=== PATIENT | male | born 1965 | race Caucasian/White ===

== ENCOUNTER → 2020-03-07 | Outpatient (CLI) | payer OTHER ==
--- NOTE | 2020-03-09 22:45 | ECGEPIP ---
[facility] Test Date: 2020-03-07 Pat Name: SONIA CORADO Department: Room: - Gender: Male [employer] Teacher: CRISPIN : 1965 Requested By: NORBERTO Yanez Order Number: [id number] Reading MD: Bairon Saxena Measurements Intervals [place] Rate: 68 P: -1 DE: 182 QRS: -5 QRSD: 111 T: 21 QT: 393 QTc: 420 Interpretive Statements SINUS RHYTHM WITH VENTRICULAR PREMATURE COMPLEX 1 MODERATE INTRAVENTRICULAR CONDUCTION DELAY Poor R-wave progression Leftward axis No prior ECG available for comparison at the time of interpretation. Electronically Signed on 03-09-2020 22:45:06 EDT by Bairon Saxena
== END ==
LOC: M EKG 09:25
PROVIDERS: ATTEND Orthopaedic Surgery
DX: Z01.810 Encounter for preprocedural cardiovascular examination (principal)

== ENCOUNTER → 2020-03-16 | Outpatient (CLI) | payer OTHER | LOC: M LABSMTC 09:10 | PROVIDERS: ATTEND Orthopaedic Surgery | DX: Z01.812 Encounter for preprocedural laboratory examination (principal); Z20.828 Contact with and (suspected) exposure to other viral communicable diseases ==

== ENCOUNTER → 2020-04-15 | Outpatient (CLI) | payer OTHER ==
[~2020-04-15] MED LIST: HYDR12.55 PO; LISI-538 PO
== END ==
LOC: M LABSMTC 11:17
PROVIDERS: ATTEND Anesthesiology
DX: Z01.812 Encounter for preprocedural laboratory examination (principal); Z20.828 Contact with and (suspected) exposure to other viral communicable diseases

== ENCOUNTER 2020-04-20 08:04 | Day surgery (SDC) | payer OTHER ==
[~2020-04-20] VITALS: Ht 177.8 cm; Wt 127.9 kg
[~2020-04-20 08:04] MED LIST changes: +MIDAZOLAM INJ 2MG/2ML VIAL (J2250 PER 1MG) IV PRN; +fentaNYL 100 MCG/2 ML INJECTION (J3010) IV PRN
[2020-04-20] MEDS ORDERED: MIDAZOLAM INJ 2MG/2ML VIAL (J2250 PER 1MG) As Ordered ONE ×2 (08:15→09:15)
[2020-04-20] MEDS ORDERED: KETOROLAC 60MG 2ML VIAL As Ordered ONE (08:15)
[2020-04-20] MEDS ORDERED: LIDOCAINE 2% 100MG/5ML SDV (FOR ANES.) As Ordered ONE (08:15)
[2020-04-20] MEDS ORDERED: dexameTHASONE 4 MG/ML 1ML VIAL (J1100 PER 1MG) As Ordered ONE ×2 (08:15→09:16)
[2020-04-20] MEDS ORDERED: propofoL 200 MG/20 ML VIAL As Ordered ONE ×2 (08:15→10:32)
[2020-04-20] MEDS ORDERED: ROCURONIUM BROMIDE 50 MG/5 ML VIAL As Ordered ONE (08:15)
[2020-04-20] MEDS ORDERED: fentaNYL 100 MCG/2 ML INJECTION (J3010) As Ordered ONE ×2 (08:15→09:15)
[2020-04-20] MEDS ORDERED: ONDANSETRON 4MG/2ML VIAL As Ordered ONE (08:15)
[2020-04-20] MEDS ORDERED: ROPIvacaine 0.5% 30ML INJECTION (J2795 PER 1MG) As Ordered ONE (09:16)
[2020-04-20] MEDS ORDERED: LIDOCAINE 1% MDV 20ML VIAL As Ordered ONE (09:17)
[2020-04-20] MEDS ORDERED: EPINEPHrine 1MG/ML INJ 30ML MD-VIAL As Ordered ONE (09:23)
[2020-04-20] MEDS ORDERED: ROPIvacaine 0.5% 30ML INJECTION (J2795 PER 1MG) XX ONE (09:45)
[2020-04-20] MEDS ORDERED: LIDOCAINE 1% MDV 20ML VIAL XX ONE (09:45)
[2020-04-20] MEDS ORDERED: ceFAZolin SOD 1 GM in D5W MINI-BAG PLUS 50 ML IV ONE (09:45)
[2020-04-20] MEDS ORDERED: dexameTHASONE 10MG/1ML VIAL PRES.FREE (J1100 PER 1MG) XX ONE (09:45)
[2020-04-20] MEDS ORDERED: ceFAZolin SOD 2 GM in IV 1 EA IV ONE (09:45)
[2020-04-20] MEDS ORDERED: ePHEDrine SULFATE 25 MG/5 ML(5MG/ML) SYRINGE As Ordered ONE ×2 (10:31→11:04)
[2020-04-20] MEDS ORDERED: PHENYLephrine HCL 500 MCG/5 ML (100MCG/ML) SYRINGE (J2370) As Ordered ONE (10:31)
[2020-04-20] MEDS ORDERED: SUGAMMADEX SODIUM 500 MG/5 ML VIAL (BRIDION) As Ordered ONE (10:32)
[2020-04-20] MEDS ORDERED: ACETAMINOPHEN 1000MG 100ML IV BTL (OFIRMEV) (J0131 PER 10MG) As Ordered ONE (10:33)
[2020-04-20] MEDS ORDERED: ONDANSETRON 4MG/2ML VIAL IV PRN (12:30)
[2020-04-20] MEDS ORDERED: oxyCODONE 5MG TAB PO PRN (12:30)
[2020-04-20] MEDS ORDERED: HYDROMORPHONE HCL 0.5 MG/ 0.5 ML SYRINGE (J1170 PER 1) IV PRN (12:30)
[2020-04-20] MEDS ORDERED: LR 1,000 ML IV SCH ×2 (12:30)
[2020-04-20] MEDS ORDERED: fentaNYL 100 MCG/2 ML INJECTION (J3010) IV PRN (12:30)
[2020-04-20 14:30] VITALS: BP 145/72
--- NOTE | 2020-04-21 09:48 | RO ---
OPERATIVE NOTE DATE OF OPERATION: 04/20/2020 PREOPERATIVE DIAGNOSIS: 1. Right shoulder calcific tendonitis. 2. Right shoulder impingement. 3. Right shoulder possible partial rotator cuff tear. POSTOPERATIVE DIAGNOSIS: 1. Right shoulder arthrofibrosis. 2. Right shoulder calcific tendonitis. 3. Right shoulder partial rotator cuff tear. 4. Right shoulder impingement. 5. Right shoulder glenohumeral arthritis. PROCEDURE: 1. Right shoulder manipulation under anesthesia. 2. Right shoulder arthroscopic chondroplasty of the glenohumeral joint, labral debridement and synovectomy. 3. Right shoulder arthroscopic subacromial decompression including acromioplasty 4. Right shoulder arthroscopic decompression of calcific tendonitis with rotator cuff debridement of reversal rotator cuff tear. SURGEON: Delfin Kessler MD SEISMOGRAPHER: JAISON Travis ANESTHESIA: General, preoperative nerve block. IV FLUIDS: Lactated Ringers. ESTIMATED BLOOD LOSS: 10 cc IMPLANTS: None. SPECIMENT: None. CLOSURE: Nylon. DESCRIPTION OF PROCEDURE: The patient identified in the preoperative holding area. The right arm was marked. He had an interscalene nerve block from anesthesia. He was brought to the operating room, placed supine in a well-padded operating room table. General anesthesia was induced. Bilateral SCDs in lower extremities for deep venous thrombosis (DVT) prophylaxis. Time-out performed per hospital protocol. Examination under anesthesia revealed 130 degrees of forward flexion and 30 degrees of external rotation with the shoulder at 90. I then performed a manipulation under anesthesia, steady forward flexion was applied to the proximal humerus, taking care to have a short ____ as possible. One small pop was felt. From a forward flexed position, he was then brought down into a 90/90 position at the shoulder and then as his arm was adducted down towards his side an additional pop was felt. The patient was then brought back up into forward flexion followed by adduction. He now had 170 degrees of forward flexion, 80 degrees of external rotation of his arm at his side and at 90 degrees. No increased anterior/posterior translation. The right arm was placed in the Arthrex STaR sleeve with the lateral decubitus traction shearer. He was then placed into the left side down lateral decubitus position with an axillary roll and all bony prominences were well padded. 10 pound of traction to the right arm was applied to the STaR sleeve device. He was secured to the OR table with a large beanbag. The right shoulder was the prepped and draped in the normal sterile fashion with ChloraPrep. He received 3 amps of IV cefazolin for antibiotic prophylaxis within one hour of incision. Time-out again performed per hospital protocol. Juvenal Parks was present for the entire procedure and participated in all essential portions of the procedure. This included patient positioning and draping, holding the arthroscope, providing rotation to the arm during the exploration and decompression of the calcific tendonitis and performed the wound closure applied the dressing and sling. The right shoulder was insufflated with lactated Ringers, standard posterior leading port was made with 11 blade. 30 degree arthroscope introduced into the joint. Diagnostic arthroscopy carried out. There was a hemarthrosis due to the manipulation under anesthesia. There was an area of exposed bone that appeared consistent with a Hill-Sachs lesion, although no history of dislocation and this was in the posterior humeral head. An anterior working portal was quickly established through the rotator interval due to poor visualization due to extensive synovitis. Purple Arthrex cannula was placed through the rotator interval. The shaver was then used to perform a synovectomy of the rotator interval and then a chondroplasty to the glenoid. So, most of the glenoid had grade 1 versus low grade 2 chondromalacia There was one area in the inferior aspect of the glenoid that had a large unstable flap of articular cartilage that was dbrided with the shaver, that area is consistent with grade 3. There was degenerative labral tearing and that was dbrided with the shaver. The long head of the biceps was intact without tearing. The subscapularis was inspected and it appeared intact. However, when performing the posterior lever push maneuver, there is a very small longitudinal rent in the tendon, but there was no liftoff from the lesser tuberosity. Based on the patient's preoperative clinical picture, there is no indication for subscapularis repair. The long head of the biceps was brought into the joint. There is some tendinopathy within the tendon but no split tearing, no indication for tenotomy or tenodesis. So after extensive debridement throughout the joint, the meniscal bitter was also used to release the upper 3rd of the middle glenohumeral ligament to assist with improved external rotation posteriorly. There was a low grade articular supraspinatus tear basically a thin flap of tissue, which was dbrided with the shaver. No areas of calcific tendinitis appreciated within the rotator cuff from the articular side. The joint was irrigated and dbrided. The arthroscope was placed into the subacromial space where there is moderate bursitis. Through a lateral working portal, I performed an extensive bursectomy. The cautery was used to partially release the CA ligaments and exposing the anterior aspect of the acromion where there was a type 2 acromion. The bur was used to perform a formal acromioplasty turning this into a type 1 morphology. Bony debris was removed with the shaver. Attention was then turned to the calcific tendinitis. Spinal needle was used to trephinate the far lateral and anterior aspect of the supraspinatus in the area of what appears to be calcium deposit. This was then probed with the switching stick and I was able to confirm that this was a calcium deposits. I was unable to milk out any calcific tissue; it had a more of a crystal in appearance. So that area was dbrided with a shaver at the bursal aspect and the adjacent rotator cuff was also dbrided with the shaver. Further exploration of the anterior aspect of the supraspinatus confirmed that there were no other calcium deposits. Extensive palpation throughout the supraspinatus with the switching stick was then carried out and any areas that appeared to possibly be calcific tendinitis were penetrated with the spinal needle and then followed by palpation with the switching stick and there were no other large areas of calcific tendinitis. At the very far lateral aspect of the greater tuberosity at the junction of the supraspinatus multiple crystals were seen and these were dbrided with the shaver. The arthroscope was then placed through the lateral portal and careful inspection again was carried out with internal and external rotation of the arm and there was low grade diffuse deposition of crystals, but no calcific deposits to debride any further. Ultimately, the patient had a very low grade bursal sided rotator cuff tear; I would estimate this to be well less than 15%. The shoulder was then internally and externally rotated, as well as abducted and adducted; there was no liftoff or buckling. The shoulder was irrigated and drained. Portal was closed with nylon suture. Bulky sterile dressing applied. At the time of this dictation, the patient was then placed into a sling and shortly will be extubated. Postop Plan: The patient will need to start physical therapy within a week to help prevent recurrence of stiffness. He will be out 100% temporary disability as this is a [place] work comp case. He can start passive and active assisted range of motion immediately. He can start active range of motion in four weeks. No rotator cuff strengthening until 8 weeks.
== END 2020-04-20 14:37 | disposition home or self-care (01) ==
LOC: M SDC 08:04
PROVIDERS: ATTEND Orthopaedic Surgery
DX: M75.31 Calcific tendinitis of right shoulder (principal); M75.41 Impingement syndrome of right shoulder; M75.111 Incomplete rotator cuff tear or rupture of right shoulder, not specified as traumatic; M19.011 Primary osteoarthritis, right shoulder; I10 Essential (primary) hypertension; Z79.899 Other long term (current) drug therapy
CPT/HCPCS: 29823; 29826; 64415; J0131; J0690; J1100; J1885; J2250; J2370; J2405; J3010